=== PATIENT | female | born 1985 | race Caucasian/White ===

== ENCOUNTER 2017-01-28 15:39 | Emergency (ER) | payer OTHER ==
[2017-01-28 15:39] VITALS: BMI 37.5
[2017-01-28 15:46] VITALS: BP 133/92; PULSE 71; RESP 16; TEMP 98.2; O2SAT 99
[2017-01-28] MEDS ORDERED: Amoxicillin-Clav 875-125 mg Tab PO STA (16:32)
--- NOTE | 2017-01-28 16:34 | C.PDOC ---
History Of Present Illness 31 year old female presents to the ER with complaints of headache described as left sided pressure-like for the past 4 days. Patient states its worse when she is bent over, or positional change and describes a clogged sensation. Patient denies fever, chills, vision changes, nausea, vomiting, dizziness, weakness or numbness. Time Seen by Provider: 01/28/17 16:02 History Per: Patient History/Exam Limitations: no limitations Onset/Duration Of Symptoms: Days (4) Current Symptoms Are (Timing): Still Present Quality: Pressure, "Pain" Associated Symptoms: denies: Blurred Vision, Nausea, Vomiting Past Medical History Reviewed: Historical Data, Nursing Documentation, Vital Signs Vital Signs: Last Vital Signs Temp 98.2 F 01/28/17 15:44 Pulse 71 01/28/17 15:44 Resp 16 01/28/17 15:44 BP 133/92 H 01/28/17 15:44 Pulse Ox 99 01/28/17 17:32 - Medical History PMH: Anxiety, HTN (uncompliant with meds) - [facility] Procedures MONITORING NOS (11/16/05) INJECT/INFUSE ELECTROLYT (04/25/14) INJECT/INFUSE NEC (04/25/14) TETANUS TOXOID ADMINIST (07/06/07) Family History: States: No Known Family Hx - Social History Hx Tobacco Use: No Hx Alcohol Use: No Hx Substance Use: No - Immunization History Hx Tetanus Toxoid Vaccination: Yes (1-1.5 yrs ago) Hx Influenza Vaccination: No Hx Pneumococcal Vaccination: No Review Of Systems Except As Marked, All Systems Reviewed And Found Negative. Constitutional: Negative for: Fever, Chills, Weakness, Malaise Eyes: Negative for: Vision Change ENT: Negative for: Ear Pain, Throat Pain Cardiovascular: Negative for: Palpitations Respiratory: Negative for: Cough Gastrointestinal: Negative for: Nausea, Vomiting Genitourinary: Negative for: Dysuria Musculoskeletal: Negative for: Neck Pain Neurological: Positive for: Headache (Left sided pressure and headache). Negative for: Weakness, Numbness, Dizziness Physical Exam - Physical Exam Appears: Well, Non-toxic, No Acute Distress Skin: Warm, Dry, No Rash Head: Atraumatic, Normacephalic, No Tenderness, No Swelling, Other ((+) Left maxillary sinus tenderness.) Eye(s): bilateral: Normal Inspection, PERRL, EOMI, Other (no nystagmus) Ear(s): Bilateral: Normal Nose: Normal, No Discharge Oral Mucosa: Moist Throat: Normal, No Erythema, No Exudate Neck: Normal, Normal ROM, Supple Chest: Symmetrical, No Tenderness Cardiovascular: Rhythm Regular, No Murmur Respiratory: Normal Breath Sounds, No Rales, No Rhonchi, No Stridor, No Wheezing Extremity: Normal ROM, No Swelling Neurological/Psych: Oriented x3, Normal Speech, Normal Motor Gait: Steady ED Course And Treatment O2 Sat by Pulse Oximetry: 99 Pulse Ox Interpretation: Normal Medical Decision Making Medical Decision Making: PLAN: * Augmentin PO * Claritin PO Re-Assess: Patient remains afebrile and in no acute distress. Normal neurological exam. Advise OTC decongestant such as Sudafed or Mucinex Disposition Counseled Patient/Family Regarding: Diagnosis, Need For Followup, Rx Given - Disposition Referrals: Kevon Bowie MD [Staff Provider] - Disposition: HOME/ ROUTINE Disposition Time: 16:32 Condition: STABLE Additional Instructions: Try taking over the counter antihistamine (Claritin, Shantelle, Zyrtec), Decongestant or Cough medicine (Mucinex) as needed every 6-8 hours. Follow up with your primary medical doctor or clinic in 1 week for further evaluation. Prescriptions: Amoxicillin/Clavulanate [Augmentin 875 MG-125 MG] 1 tab PO BID #14 tab Instructions: Sinusitis (ED), Acute Headache (DC) Forms: Work Excuse - POA Present On Arrival: None - Clinical Impression Clinical Impression: Sinus headache - PA / BUSINESS OFFICE DIRECTOR / Resident Statement MD/DO has reviewed & agrees with the documentation as recorded. - Scribe Statement The provider has reviewed the documentation as recorded by the Scribe Karen Caba All medical record entries made by the Yokoibdeborah were at my direction and personally dictated by me. I have reviewed the chart and agree that the record accurately reflects my personal performance of the history, physical exam, medical decision making, and the department course for this patient. I have also personally directed, reviewed, and agree with the discharge instructions and disposition.
[2017-01-28] MEDS ORDERED: Amoxicillin-Clav 875-125 mg Tab PO ONE (16:42)
== END 2017-01-28 16:56 | disposition home or self-care (01) ==
LOC: C.ER 15:39
DX: R51 Headache (principal)

== ENCOUNTER 2017-06-17 12:31 | Emergency (ER) | payer OTHER ==
[2017-06-17 12:31] VITALS: BMI 37.5
[2017-06-17 12:56] VITALS: RESP 18; O2SAT 98
--- NOTE | 2017-06-17 13:21 | C.PDOC ---
History Of Present Illness 31 year old female presents to the ED for evaluation of decreased hearing in right ear which began around 3 days ago. Patient now reports she is starting to lose hearing in left ear and presents to the ED for evaluation. Patient states her mother cleaned her ears using ear drops (name unknown). Patient denies fever , chills, drainage. Time Seen by Provider: 06/17/17 12:58 Chief Complaint (Nursing): ENT Problem History Per: Patient History/Exam Limitations: None Current Symptoms Are (Timing): Still Present Quality (Ear): Pain W/Touch Past Medical History Reviewed: Historical Data, Nursing Documentation, Vital Signs Vital Signs: Last Vital Signs Temp 97.8 F 06/17/17 13:55 Pulse 82 06/17/17 13:55 Resp 18 06/17/17 13:55 BP 115/79 06/17/17 13:55 Pulse Ox 98 06/17/17 14:09 - Medical History PMH: Anxiety, HTN (uncompliant with meds) Denies: Asthma, Depression, Chronic Kidney Disease - [facility] Procedures MONITORING NOS (11/16/05) INJECT/INFUSE ELECTROLYT (04/25/14) INJECT/INFUSE NEC (04/25/14) TETANUS TOXOID ADMINIST (07/06/07) Family History: States: Unknown Family Hx - Social History Hx Tobacco Use: No Hx Alcohol Use: No Hx Substance Use: No - Immunization History Hx Tetanus Toxoid Vaccination: Yes (1-1.5 yrs ago) Hx Influenza Vaccination: No Hx Pneumococcal Vaccination: No Review Of Systems ENT: Positive for: Other (decreased hearing in right and left ears ) Physical Exam - Physical Exam Appears: Non-toxic, No Acute Distress Skin: Normal Color, Warm, No Rash Head: Atraumatic, Normacephalic, No Tenderness (to pinna or tragus ) Eye(s): bilateral: Normal Inspection, PERRL, EOMI Ear(s): Bilateral: Other (inflammation to external canal. TM within normal limits. no cerumen visualized) Oral Mucosa: Moist Throat: No Erythema, No Exudate Neck: Normal ROM, Supple Neurological/Psych: Oriented x3, Normal Speech, Normal Cognition, Normal Motor Gait: Steady ED Course And Treatment O2 Sat by Pulse Oximetry: 98 (on RA) Pulse Ox Interpretation: Normal Medical Decision Making Medical Decision Making: Progress: Claritin PO and Prednisone PO administered. Disposition - Disposition Referrals: Kiran Denis MD [Staff Provider] - Disposition: HOME/ ROUTINE Disposition Time: 13:52 Condition: FAIR Additional Instructions: Follow up with the medical doctor within 1-2 days. Return if worsened. Prescriptions: Loratadine [Claritin] 10 mg PO DAILY #10 tab Neomycin/Polymyxin/Hydrocortis [Cortisporin Otic Susp] 3 drop TOP TID #1 bottle predniSONE [Prednisone] 20 mg PO BID #10 tab Instructions: Otitis Externa (ED) Forms: [employer] (Hebrew) - Clinical Impression Clinical Impression: Otitis externa - PA / MEDICAL RECORD ADMINISTRATOR / Resident Statement MD/DO has reviewed & agrees with the documentation as recorded. - Scribe Statement The provider has reviewed the documentation as recorded by the Scribe (Alisha Tinajero) All medical record entries made by the Scribe were at my direction and personally dictated by me. I have reviewed the chart and agree that the record accurately reflects my personal performance of the history, physical exam, medical decision making, and the department course for this patient. I have also personally directed, reviewed, and agree with the discharge instructions and disposition.
[2017-06-17 14:07] VITALS: BP 115/79; PULSE 82; TEMP 97.8
== END 2017-06-17 14:00 | disposition home or self-care (01) ==
LOC: C.ER 12:31
DX: H60.90 Unspecified otitis externa, unspecified ear (principal)

== ENCOUNTER 2017-08-26 16:56 | Emergency (ER) | payer OTHER ==
[2017-08-26 16:56] VITALS: BMI 37.5
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
[2017-08-26 19:51] VITALS: BP 126/76; PULSE 81; RESP 17; TEMP 97.9
[2017-08-26 20:00] VITALS: O2SAT 96
--- NOTE | 2017-08-27 09:23 | RAD ---
PROCEDURE: Left Knee Radiographs. HISTORY: Pain. COMPARISON: Left knee x-rays 02/25/2015 FINDINGS: BONES: Intramedullary anuj and screw noted within the distal femur. No evidence of prosthetic loosening or failure. No fracture identified. JOINTS: No dislocation seen. Bony articulations appear maintained. JOINT EFFUSION: None. OTHER FINDINGS: None. IMPRESSION: No fracture or dislocation identified.
== END 2017-08-26 19:51 | disposition home or self-care (01) ==
LOC: C.ER 16:56
DX: M25.562 Pain in left knee (principal); I10 Essential (primary) hypertension

== ENCOUNTER 2017-09-26 06:38 | Emergency (ER) | payer OTHER ==
[2017-09-26 06:39] VITALS: BMI 37.5
[2017-09-26 06:56] VITALS: O2SAT 100
--- NOTE | 2017-09-26 07:46 | C.PDOC ---
History Of Present Illness 32-YEAR-OLD FEMALE, PRESENTS TO THE EMERGENCY DEPARTMENT WITH COMPLAINTS OF SINUS GARRETT X 2 DAYS. +SICK CONTACT W URI SX. NO FEVER. NO COUGH, SOB EXAM NARD HEENT +SINUS GARRETT LUNGS CTA B/L NO W/R/R REMAINDER NEG Time Seen by Provider: 09/26/17 07:35 Chief Complaint (Nursing): Flu-like Symptoms History Per: Patient History/Exam Limitations: no limitations Past Medical History Reviewed: Historical Data, Nursing Documentation, Vital Signs Vital Signs: Last Vital Signs Temp 98.6 F 09/26/17 07:59 Pulse 80 09/26/17 07:59 Resp 18 09/26/17 07:59 BP 138/90 09/26/17 07:59 Pulse Ox 100 09/26/17 08:29 - Medical History PMH: Anxiety, HTN (uncompliant with meds) - [facility] Procedures MONITORING NOS (11/16/05) INJECT/INFUSE ELECTROLYT (04/25/14) INJECT/INFUSE NEC (04/25/14) TETANUS TOXOID ADMINIST (07/06/07) Family History: States: No Known Family Hx - Social History Hx Tobacco Use: No Hx Alcohol Use: No Hx Substance Use: No - Immunization History Hx Tetanus Toxoid Vaccination: Yes (1-1.5 yrs ago) Hx Influenza Vaccination: No Hx Pneumococcal Vaccination: No Review Of Systems Except As Marked, All Systems Reviewed And Found Negative. Constitutional: Negative for: Fever ENT: Positive for: Nose Congestion Respiratory: Negative for: Cough, Shortness of Breath, Sputum, Wheezing Gastrointestinal: Negative for: Vomiting Physical Exam - Physical Exam Appears: Non-toxic, No Acute Distress Skin: Warm, Dry, No Rash Head: Atraumatic, Normacephalic Eye(s): bilateral: Normal Inspection, PERRL Nose: Other (+SINUS GARRETT) Oral Mucosa: Moist Lips: Normal Appearing Neck: Normal ROM Cardiovascular: Rhythm Regular, No Murmur Respiratory: Normal Breath Sounds, No Accessory Muscle Use, No Rales, No Rhonchi , No Wheezing Extremity: Normal ROM Neurological/Psych: Oriented x3, Normal Speech ED Course And Treatment O2 Sat by Pulse Oximetry: 100 (RA) Pulse Ox Interpretation: Normal - Radiology CXR Interpretation: Yes: No Acute Disease, Infiltrates Disposition Counseled Patient/Family Regarding: Studies Performed, Diagnosis, Need For Followup, Rx Given - Disposition Referrals: YOUR,PMD [Other] Disposition: HOME/ ROUTINE Disposition Time: 08:29 Condition: GOOD Prescriptions: Oseltamivir [Tamiflu] 75 mg PO BID #10 cap Instructions: Influenza (ED), Upper Respiratory Infection (ED) Forms: [facility] (Bulgarian), Work Excuse - Clinical Impression Clinical Impression: Influenza-like illness, URI (upper respiratory infection) - Scribe Statement The provider has reviewed the documentation as recorded by the Scribe (Haris Esparza) All medical record entries made by the Scribe were at my direction and personally dictated by me. I have reviewed the chart and agree that the record accurately reflects my personal performance of the history, physical exam, medical decision making, and the department course for this patient. I have also personally directed, reviewed, and agree with the discharge instructions and disposition.
[2017-09-26 07:59] VITALS: BP 138/90; PULSE 80; RESP 18; TEMP 98.6
--- NOTE | 2017-09-26 08:18 | RAD ---
HISTORY: fever cough COMPARISON: 07/03/2017 TECHNIQUE: Chest PA and lateral FINDINGS: LUNGS: No active pulmonary disease. PLEURA: No significant pleural effusion identified. No pneumothorax apparent. CARDIOVASCULAR: Normal. OSSEOUS STRUCTURES: No significant abnormalities. VISUALIZED UPPER ABDOMEN: Normal. OTHER FINDINGS: None. IMPRESSION: No active disease.
== END 2017-09-26 08:19 | disposition home or self-care (01) ==
LOC: C.ER 06:38
DX: J11.1 Influenza due to unidentified influenza virus with other respiratory manifestations (principal)

== ENCOUNTER 2018-10-30 18:30 | Emergency (ER) | payer OTHER ==
[2018-10-30 18:31] VITALS: BMI 37.5
--- NOTE | 2018-10-30 19:29 | C.PDOC ---
History Of Present Illness 33 year old female presents with headache and nausea since yesterday and chest pain that began today. Denies fever or chills. Chief Complaint (Nursing): Chest Pain History Per: Patient History/Exam Limitations: no limitations Onset/Duration Of Symptoms: Days Current Symptoms Are (Timing): Still Present Associated Symptoms: Nausea Modifying Factors: None Exacerbating Factors: None Alleviating Factors: None Recent travel outside of the [place]: No Past Medical History Reviewed: Historical Data, Nursing Documentation, Vital Signs Vital Signs: Last Vital Signs Temp 98.2 F 10/30/18 19:01 Pulse 64 10/30/18 19:01 Resp 16 10/30/18 19:01 BP 154/89 H 10/30/18 19:01 Pulse Ox 99 10/30/18 19:01 - Medical History PMH: Anxiety, HTN (uncompliant with meds) Denies: Asthma, Depression, Chronic Kidney Disease - [facility] Procedures MONITORING NOS (11/16/05) INJECT/INFUSE ELECTROLYT (04/25/14) INJECT/INFUSE NEC (04/25/14) TETANUS TOXOID ADMINIST (07/06/07) Family History: States: Unknown Family Hx - Social History Hx Tobacco Use: No Hx Alcohol Use: No Hx Substance Use: No - Immunization History Hx Tetanus Toxoid Vaccination: Yes (1-1.5 yrs ago) Hx Influenza Vaccination: No Hx Pneumococcal Vaccination: No Review Of Systems Constitutional: Negative for: Fever, Chills Cardiovascular: Positive for: Chest Pain. Negative for: Palpitations Respiratory: Negative for: Cough, Shortness of Breath Gastrointestinal: Positive for: Nausea. Negative for: Abdominal Pain Neurological: Positive for: Headache. Negative for: Weakness, Numbness Physical Exam - Physical Exam Appears: Non-toxic, Other (Alert, conscious) Skin: Normal Color, Warm, Dry Head: Atraumatic, Normacephalic Eye(s): bilateral: Normal Inspection, PERRL, EOMI Oral Mucosa: Moist Neck: Normal, Supple Chest: Symmetrical, No Tenderness Cardiovascular: Rhythm Regular Respiratory: Normal Breath Sounds, No Rales, No Rhonchi, No Wheezing Gastrointestinal/Abdominal: Soft, No Tenderness Extremity: Normal ROM (x4) Neurological/Psych: Oriented x3, Normal Speech, Other (No focal deficit) ED Course And Treatment - Laboratory Results Result Diagrams: 10/30/18 19:40 10/30/18 19:40 ECG: Interpreted By Me, Viewed By Me ECG Rhythm: Sinus Bradycardia ECG Interpretation: Normal, No Acute Changes Interpretation Of ECG: Sinus bradycardia, normal tracings. Rate From EC O2 Sat by Pulse Oximetry: 99 (Room air) Pulse Ox Interpretation: Normal - Radiology CXR: Interpreted by Me, Viewed By Me CXR Interpretation: Yes: No Acute Disease, Other (normal chest film). No: Infiltrates Progress Note: CT head, EKG, blood work, and urinalysis ordered. Toradol administered. Disposition Counseled Patient/Family Regarding: Diagnosis - Disposition Referrals: [facility] [Outside] Disposition: HOME/ ROUTINE Disposition Time: 22:26 Condition: STABLE Prescriptions: Naproxen 375 mg PO TIDPC #20 tablet Instructions: Low Salt Diet, Costochondritis (DC), Prehypertension Forms: General Discharge Instructions, [facility] (Thai), School Excuse, Work Excuse Print Language: PERSIAN - POA Present On Arrival: None - Clinical Impression Clinical Impression: Chest pain, Pre-hypertension - Scribe Statement The provider has reviewed the documentation as recorded by the Scribe Karl Rapp All medical record entries made by the Scribe were at my direction and personally dictated by me. I have reviewed the chart and agree that the record accurately reflects my personal performance of the history, physical exam, medical decision making, and the department course for this patient. I have also personally directed, reviewed, and agree with the discharge instructions and disposition.
[2018-10-30 19:43] LABS: BASO % 0.3 % (0.0-2.0); EOS # 0.1 K/uL (0.0-0.7); EOS % 1.1 % (0.0-4.0); HEMOGLOBIN 12.2 g/dL (11.0-16.0); LYMPH # 2.6 K/uL (1.0-4.3); LYMPH % 20.5 % (20.0-40.0); MEAN CELL VOLUME 79.7 fL (81.0-99.0); MEAN CORPUSCULAR HEMOGLOBIN 25.6 pg (27.0-31.0); MEAN CORPUSCULAR HGB CONC 32.2 g/dL (33.0-37.0); MEAN PLATELET VOLUME 8.4 fL (7.2-11.7); MONO # 0.7 K/uL (0.0-0.8); NEUT % 72.1 % (50.0-75.0); RBC 4.77 Mil/uL (3.80-5.20); WHITE BLOOD COUNT 12.4 K/uL (4.8-10.8)
[2018-10-30 19:56] LABS: ALB/GLOB RATIO 1.4 (1.0-2.1); ALBUMIN 4.6 g/dL (3.5-5.0); ALT/SGPT 45 U/L (9-52); AST/SGOT 40 U/L (14-36); BLOOD UREA NITROGEN 14 mg/dL (7-17); GFR NON-AFRICAN AMERICAN > 60
[2018-10-30 22:41] VITALS: BP 134/90; RESP 14; TEMP 98.1
[2018-10-30 22:49] VITALS: PULSE 7
[2018-10-30 22:53] VITALS: O2SAT 99
--- NOTE | 2018-10-31 07:43 | CT ---
Date of service: 10/30/2018 PROCEDURE: CT HEAD WITHOUT CONTRAST. HISTORY: Headache COMPARISON: None available. TECHNIQUE: Axial computed tomography images were obtained through the head/brain without intravenous contrast. Radiation dose: Total exam DLP = 1053.9 mGy-cm. This CT exam was performed using one or more of the following dose reduction techniques: Automated exposure control, adjustment of the mA and/or kV according to patient size, and/or use of iterative reconstruction technique. FINDINGS: HEMORRHAGE: No intracranial hemorrhage. BRAIN: No mass effect or edema. No atrophy or chronic microvascular ischemic changes. VENTRICLES: Unremarkable. No hydrocephalus. CALVARIUM: Unremarkable. PARANASAL SINUSES: Unremarkable as visualized. No significant inflammatory changes. MASTOID AIR CELLS: Unremarkable as visualized. No inflammatory changes. OTHER FINDINGS: None. IMPRESSION: No acute intracranial abnormality. If symptoms persists, consider correlation with MRI. A preliminary report was generated at 8:23 p.m. on 10/30/[address] Manny Alexandra from [employer].
--- NOTE | 2018-10-31 08:26 | RAD ---
HISTORY: chest pain COMPARISON: Chest x-ray performed 09/26/17 TECHNIQUE: Chest PA and lateral FINDINGS: Examination limited by habitus. LUNGS: No focal consolidation. Please note that chest x-ray has limited sensitivity for the detection of pulmonary masses. PLEURA: No significant pleural effusion identified. No definite pneumothorax . CARDIOVASCULAR: The cardiomediastinal silhouette appears within normal limits of size. No atherosclerotic calcification present. OSSEOUS STRUCTURES: No acute osseous abnormality identified. VISUALIZED UPPER ABDOMEN: Unremarkable. OTHER FINDINGS: None. IMPRESSION: No focal consolidation.
--- NOTE | 2018-11-01 08:08 | CARD ---
APPROVED REPORT Date of service: 10/30/2018 EKG Measurement Heart [id number] <Conclusion> Sinus bradycardia Otherwise normal ECG
== END 2018-10-30 22:53 | disposition home or self-care (01) ==
LOC: C.ER 18:30
DX: R07.9 Chest pain, unspecified (principal); I10 Essential (primary) hypertension; Z91.14 Patient's other noncompliance with medication regimen
CPT/HCPCS: 70450; 71046; 80053; 84484; 84703; 85025; 85378; 93005; 96374; 99284; J1885